=== PATIENT | male | born 1950 | race Caucasian/White ===

== ENCOUNTER 2019-04-30 06:24 | Day surgery (SDC) | payer MEDICARE ==
[2019-04-28 12:25] VITALS: BP 142/73
[2019-04-28 12:46] LABS: BASOPHILS % (AUTO) 1.2 % (0.0-5.0); EOSINOPHILS % (AUTO) 2.4 % (0.0-8.0); HEMATOCRIT 45.5 % (42-54); LYMPHOCYTES % (AUTO) 32.2 % (21.0-51.0); MEAN CORPUSCULAR HEMOGLOBIN 29.7 pg (27.0-33.0); MEAN CORPUSCULAR HGB CONC 33.7 g/dL (32.0-36.0); MEAN CORPUSCULAR VOLUME 88.1 fL (79-99); MONOCYTES % (AUTO) 6.1 % (3.0-13.0); NEUTROPHILS % (AUTO) 58.1 % (40.0-77.0); NUCLEATED RED BLOOD CELLS 0.1 % (0.0-0.19); PLATELET COUNT (AUTO) 252 K/uL (130-400); RED BLOOD CELL COUNT(AUTO) 5.16 MIL/uL (4.50-6.20); RED CELL DISTRIBUTION WIDTH 13.7 % (11.0-15.5); WHITE BLOOD COUNT (AUTO) 7.6 K/uL (4.8-10.8)
[2019-04-28 13:05] LABS: CREATININE 0.9 mg/dL (0.5-1.5); POTASSIUM 4.1 mmol/L (3.5-5.1)
[2019-04-28 13:25] LABS: APPEARANCE,URINE Clear (CLEAR); BILIRUBIN,URINE Negative (NEGATIVE); COLOR,URINE Dark Yellow (YELLOW); GLUCOSE, URINE (UA) 500 mg/dL (NEGATIVE); KETONES,URINE Trace mg/dL (NEGATIVE); LEUKOCYTE ESTERASE ,URINE Negative (NEGATIVE); NITRATE,URINE Negative (NEGATIVE); OCCULT BLOOD,URINE Negative (NEGATIVE); PROTEIN,URINE Negative (NEGATIVE)
[2019-04-28 13:27] LABS: BACTERIA,URINE Rare /HPF (None Seen); MUCUS,URINE Few LPF (None Seen); RBC,URINE 0-1 /HPF (0-1); SQUAMOUS EPITHELIAL CELL,UR Rare /HPF (0-2); WBC,URINE 0-1 /HPF (0-1)
[2019-04-28 13:39] LABS: INR 0.96 (0.85-1.15); PARTIAL THROMBOPLASTIN TIME 29.4 SEC (26.3-35.5); PROTHROMBIN TIME 10.1 SEC (9.6-11.6)
[2019-04-30] VITALS (13 sets, daily range): BP systolic 95–141; BP diastolic 60–82
[~2019-04-30] VITALS: Ht 185.4 cm; Wt 116.4 kg
[~2019-04-30 06:24] MED LIST: AMLO5TAB9 PO; GABA-531 PO; MELA3TAB55 PO; METF-805 PO; NAPR-1141 PO; OMEP20TA25 PO; SERT50TA12 PO; TAMS-1 PO
[2019-04-30] MEDS ORDERED: SODIUM CHLORIDE 0.9% 1000ML 1,000 ML IV ONE (07:04)
[2019-04-30] MEDS ORDERED: IOHEXOL-350 50ML VIAL IV ONE (09:48)
[2019-04-30] MEDS ORDERED: HEPARIN SODIUM 1000UNIT/ML 10ML VIAL ONE (09:48)
[2019-04-30] MEDS ORDERED: SODIUM BICARB 50MEQ 50ML VIAL ONE (09:48)
[2019-04-30] MEDS ORDERED: NITROGLYCERIN 5 MG/ML 10 ML VIAL IV ONE (09:48)
[2019-04-30] MEDS ORDERED: MEPERIDINE-PF 25 MG/ML SYG ONE ×2 (09:48→10:30)
[2019-04-30] MEDS ORDERED: IOHEXOL 350 MG/ML 100ML INFUS..BTL IV ONE (09:48)
[2019-04-30] MEDS ORDERED: LIDOCAINE HCL 2% 20ML ONE (09:49)
[2019-04-30] MEDS ORDERED: MIDAZOLAM HCL 1 MG/ML 2ML VIAL ONE ×2 (09:49→10:30)
[2019-04-30] MEDS ORDERED: ATROPINE SULFATE 0.1 MG/ML 10 ML SYG IVP ONE (10:30)
[2019-04-30] MEDS ORDERED: SODIUM CHLORIDE 0.9% 1000ML 1,000 ML IV SCH (10:56)
[2019-04-30] MEDS ORDERED: GLUCAGON 1MG KIT 1 MG ML IM PRN (11:00)
[2019-04-30] MEDS ORDERED: DEXTROSE 50%-WATER 50 ML DISP.SYRIN IV PRN (11:00)
[2019-04-30] MEDS ORDERED: INSULIN HUMULIN R 100 UNIT/ML 3ML SQ SCH (11:30)
--- NOTE | 2019-04-30 12:15 | NUR ---
patient was recieved by joshua blue rn , when assess pt at 1215, pt stable no distress, no concerns.
== END 2019-04-30 15:00 | disposition home or self-care (01) ==
LOC: DAH 06:24
PROVIDERS: ATTEND Internal Medicine Cardiovascular Disease
DX: I20.8 Other forms of angina pectoris (principal); R00.1 Bradycardia, unspecified; I10 Essential (primary) hypertension; I48.0 Paroxysmal atrial fibrillation; E11.9 Type 2 diabetes mellitus without complications; Z98.890 Other specified postprocedural states; Z88.8 Allergy status to other drugs, medicaments and biological substances; Z79.84 Long term (current) use of oral hypoglycemic drugs; Z79.899 Other long term (current) drug therapy; Z82.49 Family history of ischemic heart disease and other diseases of the circulatory system
CPT/HCPCS: 36415; 71045; 80048; 81001; 82948 ×2; 85025; 85610; 85730; 93005; 93458; A4215; A4216; A4221; A4222; A4223 ×3; A4606; A4663; C1760; C1894; J0461; J1644; J2175 ×2; J2250 ×2; J3490 ×3; J7030; Q9965; Q9967 ×2; 99156; 99157

== ENCOUNTER 2019-05-28 12:00 | Observation (INO) | payer MEDICARE ==
[2019-05-26 13:44] LABS: BASOPHILS % (AUTO) 1.2 % (0.0-5.0); EOSINOPHILS % (AUTO) 3.7 % (0.0-8.0); HEMATOCRIT 44.3 % (42-54); LYMPHOCYTES % (AUTO) 27.9 % (21.0-51.0); MEAN CORPUSCULAR HEMOGLOBIN 28.7 pg (27.0-33.0); MEAN CORPUSCULAR HGB CONC 32.7 g/dL (32.0-36.0); MEAN CORPUSCULAR VOLUME 87.5 fL (79-99); MONOCYTES % (AUTO) 10.3 % (3.0-13.0); NEUTROPHILS % (AUTO) 56.5 % (40.0-77.0); PLATELET COUNT (AUTO) 215 K/uL (130-400); RED BLOOD CELL COUNT(AUTO) 5.06 MIL/uL (4.50-6.20); WHITE BLOOD COUNT (AUTO) 8.9 K/uL (4.8-10.8)
[2019-05-26 13:49] VITALS: BP 134/85
[2019-05-26 14:03] LABS: INR 0.93 (0.85-1.15); PARTIAL THROMBOPLASTIN TIME 27.4 SEC (26.3-35.5); PROTHROMBIN TIME 9.8 SEC (9.6-11.6)
[2019-05-26 14:11] LABS: CREATININE 0.9 mg/dL (0.5-1.5); POTASSIUM 3.9 mmol/L (3.5-5.1)
[~2019-05-28] VITALS: Ht 185.4 cm; Wt 114.9 kg
[2019-05-28] VITALS (11 sets, daily range): BP systolic 107–157; BP diastolic 58–99
[~2019-05-28 12:00] MED LIST changes: +ASPI-988 PO; +HALO15CR3 TP; +SODIUM CHLORIDE 0.9% 1000ML 1,000 ML IV ONE; +SODIUM CHLORIDE 0.9% 500ML 500 ML IV SCH; +TRAM100T34 PO; +VITAMIN B12 IM; +[UNRECOGNIZED DRUG - OTHER] PO; +[UNRECOGNIZED DRUG - OTHER] PO
[2019-05-28] MEDS ORDERED: CEFAZOLIN SODIUM 1 GM VIAL ONE (12:41)
[2019-05-28] MEDS ORDERED: BUPIVACAINE/PF 0.25% 30ML VIAL IJ ONE (12:41)
[2019-05-28] MEDS ORDERED: LIDOCAINE HCL 1% MDV 50ML VIAL ONE (12:41)
--- NOTE | 2019-05-28 12:45 | NUR ---
TO TOOLMAKER GRADE THREE PT TAKEN TO TOOLMAKER GRADE THREE VIA BED BY VANESSA JIMENEZ. PT STABLE. NO COMPLAINTS MADE.
[2019-05-28] MEDS ORDERED: MEPERIDINE-PF 25 MG/ML SYG ONE ×4 (13:14→13:53)
[2019-05-28] MEDS ORDERED: MIDAZOLAM HCL 1 MG/ML 2ML VIAL ONE ×4 (13:15→13:53)
[2019-05-28] MEDS ORDERED: IODIXANOL 320 MG/ML 100 ML VIAL ONE (13:41)
[2019-05-28] MEDS ORDERED: NAPROXEN SODIUM PO PRN (14:45)
--- NOTE | 2019-05-28 15:00 | NUR ---
ARRIVAL PT RECEIVED FROM BUNCHER OPERATOR VIA BED, S/P PPM-BIOTRONIC DR POSADAS. LT UPPER CHEST DSG DRY & INTACT. NO BLEEDING, NO HEMATOMA NOTED. C/O INCISIONAL PAIN @ THIS TIME. PO PAIN MEDICATION TO BE GIVEN. SLING TO LT ARM. ARM PRECAUTIONS REVIEWED & REINFORCED. BEDREST X 3 HRS. A/O X 3. O2 NC @ 2L. NO SOB. NO DISTRESS NOTED. DENIES N/V AND/OR DIARRHEA. DIET TO BE RESUMED. ORIENTED TO RM. SIGNIFICANT OTHER @ BEDSIDE. INSTRUCTED TO CALL FOR ASSISTANCE. CALL JACKELINE W/IN REACH.
[2019-05-28] MEDS ORDERED: ACETAMINOPHEN-CODEINE 300/30MG TAB ONE (15:08)
[2019-05-28] MEDS: ACETAMINOPHEN-CODEINE 300/30MG TAB PO PRN ×2 (15:19→22:06)
[2019-05-28] MEDS ORDERED: ACETAMINOPHEN 325 MG TAB PO PRN (18:30)
[2019-05-28] MEDS ORDERED: ONDANSETRON HCL 4 MG/2 ML VIAL IVP PRN (18:30)
[2019-05-28] MEDS ORDERED: GLUCAGON 1MG KIT 1 MG ML IM PRN (18:30)
[2019-05-28] MEDS ORDERED: DEXTROSE 50%-WATER 50 ML DISP.SYRIN IV PRN (18:30)
[2019-05-28] MEDS: INSULIN HUMULIN R 100 UNIT/ML 3ML SQ SCH (20:37)
[2019-05-28] MEDS: AMLODIPINE BESYLATE 5 MG TAB PO SCH (20:40)
[2019-05-28] MEDS: FAMOTIDINE 20MG TAB 20 MG TAB PO SCH (20:40)
[2019-05-29 03:31] VITALS: BP 113/61
[2019-05-29 03:41] LABS: BASOPHILS % (AUTO) 0.8 % (0.0-5.0); EOSINOPHILS % (AUTO) 2.7 % (0.0-8.0); HEMATOCRIT 42.3 % (42-54); MEAN CORPUSCULAR HEMOGLOBIN 29.3 pg (27.0-33.0); MEAN CORPUSCULAR HGB CONC 33.1 g/dL (32.0-36.0); MEAN CORPUSCULAR VOLUME 88.5 fL (79-99); MONOCYTES % (AUTO) 7.6 % (3.0-13.0); NEUTROPHILS % (AUTO) 60.4 % (40.0-77.0); PLATELET COUNT (AUTO) 204 K/uL (130-400); RED BLOOD CELL COUNT(AUTO) 4.78 MIL/uL (4.50-6.20); RED CELL DISTRIBUTION WIDTH 14.1 % (11.0-15.5)
[2019-05-29 04:04] LABS: CREATININE 1.1 mg/dL (0.5-1.5); POTASSIUM 3.9 mmol/L (3.5-5.1)
[2019-05-29] MEDS: INSULIN HUMULIN R 100 UNIT/ML 3ML SQ SCH (06:14)
[2019-05-29 07:00] VITALS: BP 145/72
--- NOTE | 2019-05-29 07:45 | NUR ---
AM ASSESSMENT PT SITTING IN BED, RESTING. A/O X 3. NO SOB. NO DISTRESS NOTED. DENIES CHEST PAIN OR DISCOMFORT. DENIES INCISIONAL PAIN. TELE: A PACED. LT UPPER CHEST DSG CHANGED @ THIS TIME. STERI STRIPS IN PLACED. NO BLEEDING, NO HEMATOMA NOTED. TELFA & OPSITE APPLIED. ARM PRECAUTIONS REINFORCED. DENIES N/V AND/OR DIARRHEA. UP W/ASSISTANCE. INSTRUCTED TO CALL FOR ASSISTANCE. CALL JACKELINE W/IN REACH.
[2019-05-29] MEDS: FAMOTIDINE 20MG TAB 20 MG TAB PO SCH (07:51)
[2019-05-29] MEDS: AMLODIPINE BESYLATE 5 MG TAB PO SCH (07:51)
[2019-05-29] MEDS ORDERED: METFORMIN HCL 500 MG TAB.SR.24H PO SCH (08:00)
[2019-05-29] MEDS ORDERED: PANTOPRAZOLE SODIUM 40 MG TABLET.DR PO SCH (09:00)
[2019-05-29] MEDS ORDERED: TAMSULOSIN HCL 0.4 MG CAP.ER.24H PO SCH (09:00)
[2019-05-29] MEDS ORDERED: ACETAMINOPHEN PO PRN (09:00)
[2019-05-29] MEDS ORDERED: GABAPENTIN 300 MG CAPSULE PO SCH (09:00)
[2019-05-29] MEDS ORDERED: SERTRALINE HCL 50 MG TABLET PO SCH (09:00)
[2019-05-29] MEDS ORDERED: ASPIRIN PO PRN (09:00)
[2019-05-29] MEDS ORDERED: HALOBETASOL PROPIONATE TP PRN (09:00)
[2019-05-29] MEDS ORDERED: CAFFEINE PO PRN (09:00)
--- NOTE | 2019-05-29 10:45 | NUR ---
DISCHARGE VERBAL & WRITTEN DISCHARGE INSTRUCTION REVIEWED & GIVEN TO PT & SIGNIFICANT OTHER. QUESTIONS ENCOURAGED & CLARIFIED. PROPER CARE & ACTIVITY AFTER PPM PLACEMENT REVIEWED. PT INFORMED PRESCRIPTION FOR PO PAIN MEDICATION TO BE TRANSMITTED TO PHARMACY IN FILE. TELE SUSAN REMOVED. IV DISCONTINUED. PT TO GATHER PERSONAL BELONGINGS. WILL NOTIFY STAFF WHEN READY TO BE TAKEN TO PRIVATE VEHICLE.
[2019-05-29] MEDS ORDERED: ACET1TAB12 PO (11:14)
--- NOTE | 2019-05-29 11:35 | NUR ---
DISCHARGE PT TAKEN TO PRIVATE VEHICLE VIA WC BY MYSELF, La Nena VILLANUEVA RN. NO DISTRESS NOTED.
== END 2019-05-29 11:30 | disposition home or self-care (01) ==
LOC: DAH 12:00 → 2DH 12:01 → DAH 12:01
PROVIDERS: ADMIT Internal Medicine; ATTEND Internal Medicine
DX: I49.5 Sick sinus syndrome (principal); I45.89 Other specified conduction disorders; I47.1 Supraventricular tachycardia; I48.0 Paroxysmal atrial fibrillation; I10 Essential (primary) hypertension; E11.9 Type 2 diabetes mellitus without complications; E78.5 Hyperlipidemia, unspecified; Z85.820 Personal history of malignant melanoma of skin; Z95.0 Presence of cardiac pacemaker; Z90.89 Acquired absence of other organs; Z96.651 Presence of right artificial knee joint; Z79.82 Long term (current) use of aspirin; Z79.899 Other long term (current) drug therapy; Z88.8 Allergy status to other drugs, medicaments and biological substances
CPT/HCPCS: 33208; 36415 ×2; 71045; 80048 ×2; 82948 ×4; 85025 ×2; 85610; 85730; 93005; A4215; A4216; A4221; A4222; A4223 ×3; A4606; A4663; C1785; C1894; C1898 ×2; G0378 ×20; J0690; J2175 ×4; J2250 ×4; J3490 ×2; J7030; Q9967; 99156; 99157

== ENCOUNTER 2019-08-04 08:14 | Emergency (ER) | payer MEDICARE ==
[~2019-08-04 08:14] MED LIST changes: +ACET1TAB12 PO; -SODIUM CHLORIDE 0.9% 1000ML 1,000 ML IV ONE; -SODIUM CHLORIDE 0.9% 500ML 500 ML IV SCH
[2019-08-04 08:51] LABS: APPEARANCE,URINE Clear (CLEAR); BILIRUBIN,URINE Negative (NEGATIVE); COLOR,URINE Yellow (YELLOW); GLUCOSE, URINE (UA) Negative (NEGATIVE); KETONES,URINE Trace mg/dL (NEGATIVE); LEUKOCYTE ESTERASE ,URINE Negative (NEGATIVE); NITRATE,URINE Negative (NEGATIVE); OCCULT BLOOD,URINE Negative (NEGATIVE); PROTEIN,URINE Negative (NEGATIVE)
[2019-08-04 09:10] LABS: BACTERIA,URINE Rare /HPF (None Seen); MUCUS,URINE Few LPF (None Seen); SQUAMOUS EPITHELIAL CELL,UR Rare /HPF (0-2); WBC,URINE 0-1 /HPF (0-1)
[2019-08-04 09:32] LABS: BASOPHILS % (AUTO) 0.5 % (0.0-5.0); EOSINOPHILS % (AUTO) 1.1 % (0.0-8.0); HEMATOCRIT 47.4 % (42-54); MEAN CORPUSCULAR HGB CONC 33.1 g/dL (32.0-36.0); MEAN CORPUSCULAR VOLUME 87.5 fL (79-99); MONOCYTES % (AUTO) 4.2 % (3.0-13.0); NEUTROPHILS % (AUTO) 77.7 % (40.0-77.0); PLATELET COUNT (AUTO) 239 K/uL (130-400); RED BLOOD CELL COUNT(AUTO) 5.42 MIL/uL (4.50-6.20); RED CELL DISTRIBUTION WIDTH 13.8 % (11.0-15.5); WHITE BLOOD COUNT (AUTO) 9.4 K/uL (4.8-10.8)
[2019-08-04] MEDS ORDERED: ONDANSETRON HCL 4 MG/2 ML VIAL ONE (09:35)
[2019-08-04] MEDS ORDERED: SODIUM CHLORIDE 0.9% 1000ML 1,000 ML IV ONE (09:36)
[2019-08-04] MEDS ORDERED: KETOROLAC TROMETHAMINE 30MG/ML ONE (09:36)
[2019-08-04 09:47] LABS: CREATININE 1.1 mg/dL (0.5-1.5); POTASSIUM 4.4 mmol/L (3.5-5.1)
[2019-08-04 09:52] LABS: BILIRUBIN,TOTAL 0.5 mg/dL (0.2-1.0)
== END 2019-08-04 11:38 | disposition home or self-care (01) ==
LOC: EDH 08:14
DX: G89.29 Other chronic pain (principal); R10.9 Unspecified abdominal pain; M54.9 Dorsalgia, unspecified; Z88.8 Allergy status to other drugs, medicaments and biological substances
CPT/HCPCS: 36415; 74176; 80053; 81001; 85025; 96374; 96375; 99284; J1885; J2405; J7030

== ENCOUNTER 2020-01-09 05:41 | Observation (INO) | payer MEDICARE ==
[~2020-01-09] VITALS: Ht 185.4 cm; Wt 108.9 kg
[2020-01-09] VITALS (20 sets, daily range): BP systolic 110–154; BP diastolic 56–89
[2020-01-09 06:33] LABS: BASOPHILS % (AUTO) 0.1 % (0.0-5.0); HEMATOCRIT 44.3 % (42-54); LYMPHOCYTES % (AUTO) 10.4 % (21.0-51.0); MEAN CORPUSCULAR HEMOGLOBIN 29.6 pg (27.0-33.0); MEAN CORPUSCULAR HGB CONC 33.2 g/dL (32.0-36.0); MEAN CORPUSCULAR VOLUME 89.3 fL (79-99); MONOCYTES % (AUTO) 3.6 % (3.0-13.0); NEUTROPHILS % (AUTO) 85.3 % (40.0-77.0); PLATELET COUNT (AUTO) 243 K/uL (130-400); RED BLOOD CELL COUNT(AUTO) 4.96 MIL/uL (4.50-6.20); RED CELL DISTRIBUTION WIDTH 13.5 % (11.0-15.5); WHITE BLOOD COUNT (AUTO) 15.6 K/uL (4.8-10.8)
[2020-01-09 06:43] LABS: POTASSIUM 4.4 mmol/L (3.5-5.1)
[2020-01-09 06:45] LABS: INR 0.94 (0.85-1.15); PROTHROMBIN TIME 10.2 SEC (9.6-11.6)
[2020-01-09 06:48] LABS: BILIRUBIN,TOTAL 0.3 mg/dL (0.2-1.0); TOTAL PROTEIN, SERUM 7.5 g/dL (6.0-8.3)
[2020-01-09] MEDS ORDERED: CEFAZOLIN SODIUM 1 GM VIAL ONE ×4 (09:34→19:57)
[2020-01-09] MEDS ORDERED: BUPIVACAINE/PF 0.25% 30ML VIAL IJ ONE (09:35)
[2020-01-09] MEDS ORDERED: VANCOMYCIN HCL 1 GM VIAL ONE (09:35)
[2020-01-09] MEDS ORDERED: TOBRAMYCIN SULFATE 40MG/1ML VIAL ONE (09:37)
[2020-01-09] MEDS ORDERED: THROMBIN-JMI 20000 UNIT KIT TP ONE (09:38)
[2020-01-09] MEDS ORDERED: DURAMORPH PF1 MG/ML 10ML AMP IV ONE (09:38)
[2020-01-09] MEDS ORDERED: FENTANYL CITRATE PF 50 MCG/1 ML 2ML VIAL ONE ×2 (09:38→09:47)
[2020-01-09] MEDS ORDERED: LIDOCAINE PF 2% 5ML ABBOJECT ONE (09:46)
[2020-01-09] MEDS ORDERED: SUCCINYLCHOLINE CHLORIDE 20 MG/ML 10 ML VIAL ONE (09:46)
[2020-01-09] MEDS ORDERED: ROCURONIUM 10MG/1ML SYR 10 MG/ML ML ONE ×2 (09:46→12:32)
[2020-01-09] MEDS ORDERED: PROPOFOL 10 MG/ML 20ML VIAL IV ONE (09:46)
[2020-01-09] MEDS ORDERED: EPHEDRINE SULFATE 50 MG/ML AMPULE ONE (11:54)
[2020-01-09] MEDS ORDERED: GENTAMICIN 80 MG/NS 100 ML PB 100 ML IV ONE (12:36)
[2020-01-09] MEDS ORDERED: KETOROLAC TROMETHAMINE 30MG/ML ONE (14:13)
[2020-01-09] MEDS ORDERED: GLYCOPYRROLATE 1 MG/5 ML SYRINGE ONE (14:13)
[2020-01-09] MEDS ORDERED: NEOSTIGMINE 5MG/5ML SYR IV ONE (14:13)
[2020-01-09] MEDS ORDERED: BACITRACIN 28.4 GM OINT TP ONE (14:31)
[2020-01-09] MEDS ORDERED: DEXAMETHASONE SOD PHOSPHATE 10MG/ML 1ML VIAL ONE (14:32)
[2020-01-09] MEDS ORDERED: ACETAMINOPHEN-CODEINE 300/30MG TAB PO PRN ×2 (18:45)
[2020-01-09] MEDS ORDERED: SODIUM CHLORIDE 0.9% 1000ML 1,000 ML IV SCH (18:45)
[2020-01-09] MEDS ORDERED: MEPERIDINE-PF 75 MG/ML SYG IM PRN (18:45)
--- NOTE | 2020-01-09 19:30 | NUR ---
TANI DRAIN REMOVED 50 CC FROM DRAIN. SEROSANGUINEOUS DRAINAGE NOTED. DRESSING TO INCISION SITE INTACT, CLEAN AND DRY.
[2020-01-09] MEDS: CEFAZOLIN SODIUM 1 GM VIAL IVP SCH (20:49)
[2020-01-09] MEDS: AMLODIPINE BESYLATE 5 MG TAB PO SCH (20:49)
[2020-01-10 03:46] VITALS: BP 114/55
--- NOTE | 2020-01-10 03:56 | NUR ---
NURSING ROUNDS PT ASLEEP IN BED. OBSERVED RISE AND FALL OF CHEST. EVEN, UNLABORED RESP. NO S/S OF DISTRESS NOTED. BED LOCKED AND IN LOWEST POSITION, CALL LIGHT WITHIN REACH ON BED. WILL CONT TO MONITOR PT.
[2020-01-10] MEDS: CEFAZOLIN SODIUM 1 GM VIAL IVP SCH ×2 (05:18→13:06)
--- NOTE | 2020-01-10 07:00 | NUR ---
UNABLE TO VOID PT VOICED CONCERN THAT HE WAS ONLY ABLE TO VOID "VERY LITTLE". WILL BLADDER SCAN PT. ENDORSED IN REPORT TO PRIMARY DAY SHIFT NURSE.
--- NOTE | 2020-01-10 07:00 | NUR ---
TANI OUTPUT DRAIN OUT PUT 60 CC, SEROSANGUINEOUS DRAINAGE. TOTAL OUTPUT FOR TOBACCO SIEVE OPERATOR 110 CC.
[2020-01-10 08:00] VITALS: BP 160/86
--- NOTE | 2020-01-10 08:50 | NUR ---
pt c/o full bladder, bladder scan resulted 897cc after pt was able to void only a small amount; i have paged dr gay to inform him and get order to cath patient.
[2020-01-10] MEDS ORDERED: NAPROXEN SODIUM PO PRN (09:00)
[2020-01-10] MEDS ORDERED: ASPIRIN PO PRN (09:00)
[2020-01-10] MEDS ORDERED: NON-FORMULARY MEDICATION 1 EACH (Metformin HCl (Metformin HCl ER) 500 MG) PO SCH (09:00)
[2020-01-10] MEDS ORDERED: ACETAMINOPHEN PO PRN (09:00)
[2020-01-10] MEDS ORDERED: CAFFEINE PO PRN (09:00)
[2020-01-10] MEDS ORDERED: NON-FORMULARY MEDICATION 1 EACH (Omeprazole 20 MG) PO SCH (09:00)
[2020-01-10] MEDS: GABAPENTIN 300 MG CAPSULE PO SCH (09:18)
[2020-01-10] MEDS: METFORMIN HCL 500 MG TAB.SR.24H PO SCH (09:18)
[2020-01-10] MEDS: PANTOPRAZOLE SODIUM 40 MG TABLET.DR PO SCH (09:18)
[2020-01-10] MEDS: SERTRALINE HCL 50 MG TABLET PO SCH (09:19)
[2020-01-10] MEDS: AMLODIPINE BESYLATE 5 MG TAB PO SCH ×2 (09:19→21:00)
[2020-01-10] MEDS: TAMSULOSIN HCL 0.4 MG CAP.ER.24H PO SCH (09:19)
--- NOTE | 2020-01-10 09:45 | NUR ---
ORDER RECEIVED FROM DR PHILLIPS TO IN AND OUT CATH THE PATH DUE TO BLADDER RETENTION; AFTER EXPLAINING TO THE PATIENT THE PROCEDURE TO BE DONE AND ANSWERING ALL HIS QUESTION I PERFORMED THE IN AND OUT CATH; FIRST I WASHED MY HANDS THEN USING ASEPTIC AND CLEANSING PT MEATUS WITH BETADINE A 16FR AMES CATHETOR WAS INSERTED AND PT HAD IMMEDIATE OUTPUT OF 1200CC OF CLEAR YELLOW URINE; PT RODOLFO. THE PROC. WELL; HE STATED HE HAS HARDLY NO SENSASTION TO HIS BLADDER DUE TO HIS BACK PROBLEM AND DOES NOT REALLY FEEL IT FULL; PATIENT IS DUE TO VOID AT THIS TIME AND HE HAS A URINAL.
--- NOTE | 2020-01-10 11:00 | NUR ---
PT AMBULATED IN ROOM APPROX. 100FT, HE STATED THAT HIS FEET FEEL VERY HEAVY BUT NOT BAD YESTERDAY; HE STATES HE DOESN'T FEEL LIKE HE NEEDS TO URINATE YET BUT ITS HARD TO TELL BECAUSE HE DOESN'T FEEL HIS BLADDER VERY WELL; I DISCUSSED WITH HIM POSSIBLY NEEDING A AMES PLACED AND GOING HOME WITH IT AND SEEING A UROLOGIST OUTPATIENT IF HE'S NOT ABLE TO VOID AND HE STATED UNDERSTANDING; I EMPTIED 25CC FROM THE TANI DRAIN EXITING HIS BACK.
[2020-01-10 12:00] VITALS: BP 129/71
--- NOTE | 2020-01-10 15:27 | NUR ---
INITIAL SW spoke with patient's friend, Bessy Nicholson. Patient lives alone but friend lives in an apartment next to patient's home. He has no home services at this time. DME: glucometer (no insulin), BPM. Patient was able to complete ADL's independently and drove prior to having surgery. PCP is Dr. Russell Escobar. Pharmacy is [facility] located in [place] on [facility]. DCP is home. Addendum: 01/10/20 at 1529 by RULA SANCHEZ SS Amended: Links added.
[2020-01-10 16:00] VITALS: BP 126/68
--- NOTE | 2020-01-10 16:53 | NUR ---
PT HAD BEEN DUE TO VOID AND HAD NOT FELT SENSATION TO VOID TILL NOW; HE VOIDED 300CC OF URINE AND SAID HE REALLY HAD TO CONCENTRATE TO BE ABLE TO GET THE URINE TO RELEASE. I CHECKED POST VOID RESIDUAL WITH BLADDER SCAN AND PT HAD 125CC RESIDUAL. PT IS ALSO C/O TO ME INABILITY TO HAVE A BOWEL MOVEMENT UNLESS HE TAKES LAXATIVE, THAT HE CAN NOT GET THE STOOL TO COME OUT UNLESS IT IS LIQUID DUE TO LACK OF SENSATION IN RECTAL AREA. HE STATES HE FEELS THAT THE SENSATION IS SOMEWHAT IMPROVED NOW THAT HE HAD THE SURGERY. HE STATES HE WOULD PREFER TO STAY OVERNIGHT ONE MORE NIGHT TO MAKE SURE HE IS GOING TO BE ABLE TO VOID ; I WILL UPDATE DR PHILLIPS; PT HAD 20CC OF TANI DRAIN OUTPUT.
[2020-01-10] MEDS ORDERED: LACTULOSE 20 GM/30 ML UDCUP PO PRN (17:00)
[2020-01-10] MEDS ORDERED: LACTULOSE 20 GM/30 ML UDCUP ONE (17:10)
--- NOTE | 2020-01-10 18:14 | NUR ---
I SPOKE TO DR PHILLIPS ON THE PHONE AND INFORMED HIM OF PT'S DAILY PROGRESS AND PT'S WISH TO STAY OVER NIGHT TO MAKE SAGE THAT HE'S ABLE TO VOID AND HE AGREED THAT PT CAN STAY OVER NIGHT AND PLAN D/C TOMORROW. ALSO HE STATED IT WAS OK FOR PT TO RECEIVE LACTULOSE TO ASSIST HIM WITH BOWEL MOVEMENT
[2020-01-10 19:20] VITALS: BP 121/72
--- NOTE | 2020-01-10 23:56 | NUR ---
NURSING ROUNDS PT C/O FEELING GASSY AND THE URGE TO HAVE A BM. REPORTS THAT HE DOES NOT HAVE CONTROL OF HIS RECTUM MUSCLES AND IS FREQUENTLY GETTING UP TO GO TO THE RESTROOM. OFFERED TO PLACE A BRIEF AND THE PT ACCEPTED. ADULT BRIEF PLACED. INSTRUCTED THE PT TO CALL FOR ASSISTANCE WHEN NEEDED- PT VERBALIZED AGREEMENT. CALL LIGHT WITHIN REACH ON BED.
[2020-01-10 23:58] VITALS: BP 142/72
[2020-01-11 03:40] VITALS: BP 131/62
[2020-01-11] MEDS: AMLODIPINE BESYLATE 5 MG TAB PO SCH (07:55)
[2020-01-11] MEDS: SERTRALINE HCL 50 MG TABLET PO SCH (07:55)
[2020-01-11] MEDS: PANTOPRAZOLE SODIUM 40 MG TABLET.DR PO SCH (07:55)
[2020-01-11] MEDS: TAMSULOSIN HCL 0.4 MG CAP.ER.24H PO SCH (07:55)
[2020-01-11] MEDS: METFORMIN HCL 500 MG TAB.SR.24H PO SCH (07:55)
[2020-01-11] MEDS: GABAPENTIN 300 MG CAPSULE PO SCH (07:55)
[2020-01-11 08:00] VITALS: BP 122/69
[2020-01-11 12:00] VITALS: BP 119/66
--- NOTE | 2020-01-11 15:00 | NUR ---
DRSG CHANGED TO PTS BACK INCISION AND TANI DRAIN REMOVED; PT HAS A WELL APPROX. INC. LINE WITH BRITTNY IN PLACE, SLIGHT REDNESS AROUND SURGICAL MARGINS, NO EDEMA OR DRAINAGE NOTED; TANI INSERTION SITE WNL AFTER DRAIN REMOVED--COMPRESSION DRESSING PLACED OVER SITE FOR POSSIBLE BLEEDING; INC. LINE CLEANED WITH BETADINE THEN BACITRACIN OINTMENT APPLIED--THEN 4X4 ANNA AND MEDIPORE TAPE; CLEAN TEQUNIQUE USED; PT RODOLFO. PROC. WELL. WITH NO C/O PAIN.
[2020-01-11 16:00] VITALS: BP 139/57
--- NOTE | 2020-01-11 16:30 | NUR ---
D/C INSTRUCTIONS ON AFTERCARE FOR A LAMINECTOMY COMPLETE; PT STATED UNDERSTANDING OF ALL INSTRUCTIONS INCLUDING WOUND CARE, SIGNS AND SYMPTOMS TO REPORT TO MD SUCH INFECTION OR CHANGE NEUROLOGICAL STATUS OR ANY OTHER QUESTIONS OR CONCERNS, PAIN MEDICATION PERSCRIPTION, LIMITED ACTIVITY--NO TWISTING, PULLING OR LIFTING HEAVY OBJECTS TILL INSTRUCTED DIFFERETLY; PT DID TALK TO DR PHILLIPS ON THE PHONE EARLIER IN DAY AND HAD A LIST OF QUESTIONS THAT HE ASKED HIM AND HAD ANSWERED; PT STATED HE ALREADY HAS A F/U APPOINTMENT WITH DR PHILLIPS SO INSTRUCTED HIM TO KEEP THAT APPOINTMENT AND TO ALSO CALL OFFICE TO HAVE HOME HEALTH NURSE SET UP THAT DR PHILLIPS STATED HE WOULD HAVE HIS OFFICE SET UP. IV ACCESS REMOVED, SCRIPT FOR PAIN MEDS--TRAMADOL GIVEN TO PATIENT AND INSTRUCTED ON HOW TO TAKE WELL TO CONTINUE ALL CURRENT HOME MEDICATIONS.
--- NOTE | 2020-01-11 16:45 | NUR ---
I HAVE GIVEN PT 2 DOSES OF LACTULOSE FOR HIS PROBLEMS WITH CONSTIPATION AND DECREASED SENSATION OF RECTUM; PT DID HAVE A LARGE BOWEL MOVEMENT NOW AND STATED HE FELT MUCH RELEIVED.
[2020-01-23] MEDS ORDERED: VITAMIN B12 IM SCH (09:00)
== END 2020-01-11 17:45 | disposition home or self-care (01) ==
LOC: EDH 05:41 → EDHIP 07:16 → 3AH 15:57
PROVIDERS: ADMIT Neurological Surgery; ATTEND Neurological Surgery
DX: Z03.818 Encounter for observation for suspected exposure to other biological agents ruled out (principal); M48.061 Spinal stenosis, lumbar region without neurogenic claudication; G83.4 Cauda equina syndrome; M47.816 Spondylosis without myelopathy or radiculopathy, lumbar region; Z87.442 Personal history of urinary calculi; Z88.8 Allergy status to other drugs, medicaments and biological substances
CPT/HCPCS: 36415; 63017; 71045; 72020; 80053; 82948 ×8; 85025; 85610; 85730; 87426; 93005; 96374; 96376; 99285; A4351; A4649; A6010; C1713; C1762; G0378 ×18; J0330; J0690 ×8; J1030 ×2; J1100; J1580; J1885; J2001; J2274 ×2; J2704; J2710; J3010 ×2; J3260 ×2; J3370 ×2; J3490 ×5; J7030

== ENCOUNTER → 2020-02-25 | Outpatient (CLI) | payer MEDICARE ==
[~2020-02-25] MED LIST changes: -ACET1TAB12 PO; -HALO15CR3 TP; -TRAM100T34 PO; -[UNRECOGNIZED DRUG - OTHER] PO; -[UNRECOGNIZED DRUG - OTHER] PO
== END | disposition home or self-care (01) ==
LOC: RAH 14:08
PROVIDERS: ATTEND Physical Medicine & Rehabilitation
DX: J32.0 Chronic maxillary sinusitis (principal); M54.12 Radiculopathy, cervical region; R51 Headache
CPT/HCPCS: 70450

== ENCOUNTER → 2024-01-16 | Outpatient (CLI) | payer OTHER ==
[~2024-01-16] MED LIST changes: +AMLO-257 PO; -AMLO5TAB9 PO; -ASPI-988 PO; +ASPI1TAB7 PO; +IOHEXOL 350 MG/ML 100ML INFUS..BTL IV ONE; -METF-805 PO; +METF-890 PO; +METOPROLOL TARTRATE 1 MG/ML 5ML VIAL IV ONE; +OMEP20TA20 PO; -OMEP20TA25 PO; +SERT-439 PO; -SERT50TA12 PO
== END | disposition home or self-care (01) ==
LOC: RAH 10:15
PROVIDERS: ATTEND Internal Medicine Cardiovascular Disease
DX: R06.00 Dyspnea, unspecified (principal); M47.815 Spondylosis without myelopathy or radiculopathy, thoracolumbar region
CPT/HCPCS: 75574; J3490; Q9967

== ENCOUNTER → 2024-01-19 | Outpatient (CLI) | payer OTHER ==
[~2024-01-19] MED LIST changes: -IOHEXOL 350 MG/ML 100ML INFUS..BTL IV ONE; -METOPROLOL TARTRATE 1 MG/ML 5ML VIAL IV ONE
== END | disposition home or self-care (01) ==
LOC: SHCH 14:23
PROVIDERS: ATTEND Internal Medicine Cardiovascular Disease
DX: I10 Essential (primary) hypertension (principal)
CPT/HCPCS: 93306

== ENCOUNTER → 2024-02-20 | Outpatient (CLI) | payer OTHER ==
[~2024-02-20] MED LIST changes: +ALBUTEROL 0.083% 2.5 MG/3 ML INH IH ONE
== END | disposition home or self-care (01) ==
LOC: RESP 13:43
PROVIDERS: ATTEND Internal Medicine Cardiovascular Disease
DX: R06.02 Shortness of breath (principal); R07.9 Chest pain, unspecified; R06.09 Other forms of dyspnea
CPT/HCPCS: 94060

== ENCOUNTER → 2024-08-04 | Outpatient (CLI) | payer OTHER ==
[~2024-08-04] MED LIST changes: -ALBUTEROL 0.083% 2.5 MG/3 ML INH IH ONE; +IOHEXOL 350 MG/ML 100ML INFUS..BTL IV ONE; +METF-1150 PO; -METF-890 PO; +metoPROLOL tartRATE 1 MG/ML 5ML VIAL IV ONE
--- NOTE | 2024-08-04 14:36 | HMCIMG ---
CT CARDIAC ANGIO W/CONT. CCTA HISTORY: Chest pain COMPARISON: None TECHNIQUE: Multiple sequential axial images of the chest were obtained along with the CT angiogram of the chest study. Patient was given 100 cc of Omnipaque through intravenous route. FINDINGS: There is no evidence of pulmonary nodule or parenchymal disease. No pleural effusion or pericardial effusion is seen. There is no evidence of pneumothorax. There are normal size mediastinal and hilar lymph nodes. The heart is borderline enlarged. Coronary arterial calcifications are seen. Degenerative changes of the thoracolumbar spine are present. IMPRESSION: 1. No evidence of pulmonary nodule or effusion is seen. Please see CT angiogram report of coronary arteries.
== END | disposition home or self-care (01) ==
LOC: RAH 08:01
PROVIDERS: ATTEND Internal Medicine Cardiovascular Disease
DX: I25.10 Atherosclerotic heart disease of native coronary artery without angina pectoris (principal); R07.9 Chest pain, unspecified; M47.815 Spondylosis without myelopathy or radiculopathy, thoracolumbar region
CPT/HCPCS: 75574; J3490 ×2; Q9967

== ENCOUNTER 2024-08-27 10:54 | Day surgery (SDC) | payer OTHER ==
[2024-08-26 12:04] LABS: BASOPHILS # (AUTO) 0.08 K/uL (0.00-0.20); BASOPHILS % (AUTO) 0.7 % (0.0-5.0); EOSINOPHILS # (AUTO) 0.17 K/uL (0.00-0.70); EOSINOPHILS % (AUTO) 1.6 % (0.0-8.0); HEMATOCRIT 45.1 % (42-54); IMMATURE GRANULOCYTE ABSOLUTE 0.06 K/uL (0-1); LYMPHOCYTES # (AUTO) 2.2 K/uL (1.0-4.8); LYMPHOCYTES % (AUTO) 20.7 % (21.0-51.0); MEAN CORPUSCULAR HEMOGLOBIN 29.2 pg (27.0-33.0); MEAN CORPUSCULAR HGB CONC 32.8 g/dL (32.0-36.0); MEAN CORPUSCULAR VOLUME 89.1 fL (79-99); MONOCYTES # (AUTO) 0.8 K/uL (0.1-1.0); MONOCYTES % (AUTO) 7.6 % (3.0-13.0); NEUTROPHILS # (AUTO) 7.4 K/uL (1.8-7.7); NEUTROPHILS % (AUTO) 68.8 % (40.0-77.0); PLATELET COUNT (AUTO) 241 K/uL (130-400); RED BLOOD CELL COUNT(AUTO) 5.06 MIL/uL (4.50-6.20); RED CELL DISTRIBUTION WIDTH 13.2 % (11.0-15.5); WHITE BLOOD COUNT (AUTO) 10.8 K/uL (4.8-10.8)
[2024-08-26 12:16] LABS: INR 1.03 (0.85-1.15); PROTHROMBIN TIME 10.9 SEC (9.6-11.6)
[2024-08-26 12:17] LABS: PARTIAL THROMBOPLASTIN TIME 32.8 SEC (26.3-35.5)
[2024-08-26 12:20] LABS: APPEARANCE,URINE CLEAR (CLEAR); BILIRUBIN,URINE NEGATIVE (NEGATIVE); COLOR,URINE YELLOW (YELLOW); GLUCOSE, URINE (UA) 200 mg/dL (NEGATIVE); KETONES,URINE NEGATIVE (NEGATIVE); LEUKOCYTE ESTERASE ,URINE NEGATIVE Leu/uL (NEGATIVE); NITRATE,URINE NEGATIVE (NEGATIVE); OCCULT BLOOD,URINE NEGATIVE (NEGATIVE); PROTEIN,URINE 20 mg/dL (NEGATIVE)
[2024-08-26 12:25] LABS: CREATININE 1.2 mg/dL (0.5-1.3)
[2024-08-26 12:33] VITALS: BP 120/67; PULSE 87; RESP 18; TEMP 97.5
[2024-08-26 12:38] LABS: ADD UA MICROSCOPIC YES
--- NOTE | 2024-08-26 12:40 | EKG ---
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
[2024-08-26 12:41] LABS: BACTERIA,URINE RARE /HPF (None Seen); MUCUS,URINE FEW LPF (None Seen); SQUAMOUS EPITHELIAL CELL,UR RARE /HPF (0-2)
[2024-08-26 12:45] LABS: B-TYPE NATRIURETIC PEPTIDE 19 pg/mL (0-100)
--- NOTE | 2024-08-26 14:37 | HMCIMG ---
Exam Type: CHEST 1VW Clinical Information: PREOP Comparison: None Findings: Left cardiac pacemaker is noted with leads in place. The lungs are clear of infiltrates. The heart is normal in size. The bony and soft tissue structures of the chest are unremarkable. Impression: Clear lungs.
--- NOTE | 2024-08-26 15:13 | NUR ---
REPORT REPORTED NA AND CHLORIDE TO MANDA GALVAN NP. OK TO PROCEED
[~2024-08-27] VITALS: Ht 185.4 cm; Wt 116.6 kg
[2024-08-27] VITALS (10 sets, daily range): BP systolic 115–134; BP diastolic 64–81; PULSE 60–100; RESP 11–16; TEMP 96.9–97.4
[~2024-08-27 10:54] MED LIST changes: -AMLO-257 PO; +AMLO2.5T4 PO; +APIX5TAB PO; +ASPI-1443 PO; -ASPI1TAB7 PO; +CETI10TA57 PO; +DIPH50CA37 PO; +EZET10TA48 PO; +FENT1PAT60 TD; +GABA-1405 PO; -GABA-531 PO; +HYDR-4068 PO; -IOHEXOL 350 MG/ML 100ML INFUS..BTL IV ONE; -MELA3TAB55 PO; -METF-1150 PO; +METO50TA18 PO; +MONT-39 PO; -NAPR-1141 PO; +OZEMPIC SQ; +SERT-438 PO; -SERT-439 PO; -TAMS-1 PO; -VITAMIN B12 IM; +VOLTAREN TP; -metoPROLOL tartRATE 1 MG/ML 5ML VIAL IV ONE
[2024-08-27] MEDS ORDERED: HEParin 10,000 UNIT/10ML (1,000 UNIT/ML) VIAL ONE (13:53)
[2024-08-27] MEDS ORDERED: LIDOCAINE HCL 400MG/20ML VIAL ONE (13:53)
[2024-08-27] MEDS ORDERED: IOHEXOL 350 MG/ML 100ML INFUS..BTL IV ONE (13:53)
[2024-08-27] MEDS ORDERED: niCARDIpine 25MG INJ IV ONE (13:55)
[2024-08-27] MEDS ORDERED: HEParin-NS 1,000 UNIT/500 ML 500 ML IV ONE (13:55)
[2024-08-27] MEDS ORDERED: NITROGLYCERIN 50MG VIAL ONE (14:09)
[2024-08-27] MEDS ORDERED: FENTanyl CITRate PF 50 MCG/1 ML 2ML VIAL ONE (14:11)
[2024-08-27] MEDS ORDERED: MIDAZOLAM HCL 1 MG/ML 2ML VIAL ONE ×2 (14:11→14:31)
[2024-08-27] MEDS ORDERED: 0.9%NACL 1000ML 1,000 ML IV SCH (15:00)
[2024-08-27] MEDS ORDERED: GLUCAGON 1MG KIT 1 MG ML IM PRN (15:00)
[2024-08-27] MEDS ORDERED: DEXTROSE 50%-WATER 50 ML DISP.SYRIN IV PRN (15:00)
--- NOTE | 2024-08-27 15:56 | PR ---
PROCEDURES: * Left heart catheterization. * Selective right and left coronary arteriogram. * Conscious sedation. INDICATIONS: * Recurrent angina. * Abnormal Cardiolite. * Abnormal coronary CT angiography. COMPLICATIONS: None. TOTAL CONTRAST: Approximately 60 mL. APPROACH: Right radial approach. DESCRIPTION OF PROCEDURE: The patient was taken to the cardiac catheterization lab after appropriate operative consents were signed. He was prepped and draped in the usual fashion. After conscious sedation was administered, the right radial artery region was infiltrated with 2% Xylocaine without epinephrine. At this point, a 6-Vietnamese slender sheath was advanced after cannulating the vessel in a retrograde fashion by the modified Seldinger technique. Radial cocktail was administered. A TIG 4 catheter was then advanced over an indwelling wire and was positioned in the left ventricular cavity. Left ventricular end-diastolic pressure measurement was obtained. Ventriculography was deferred. The patient has preserved LV systolic function by noninvasive studies. Pullback revealed no aortic stenosis. The catheter was engaged in the ostium of the left main. This was imaged in multiplane. This was a large vessel that was short in its course. It trifurcated into an LAD, intermediate and a circumflex. Circumflex coronary artery was a small vessel that gave rise to an obtuse marginal branch and ongoing circ and was free of disease. Intermediate was a large vessel that was branching and free of disease. The LAD was a moderately large vessel, gave rise to several diagonals and septal perforators. Mid LAD had a kinked lesion of approximately 40% stenosis. There were no other significant stenotic lesions. The catheter was withdrawn and engaged in the ostium of the right coronary artery. Imaging was obtained in multiplane. This was a large tortuous vessel with a moreno's crook in its proximal portion. It gave rise to an acute marginal, a large PDA and a PLVB. There were no significant stenotic lesions in the right coronary artery. At this point, the procedure was completed, the catheter was withdrawn over an indwelling wire. The patient tolerated the procedure well and left the cardiac catheterization lab in stable condition. FINAL IMPRESSION: * Minor left anterior descending stenosis rated at 40% with no other significant stenotic lesions. * No aortic stenosis. * Preserved left ventricular systolic function by noninvasive studies. PLAN: Continue to optimize medical management. TID: [id number] RECEIPT: [id number]
[2024-08-27] MEDS ORDERED: INSULIN humuLIN R 100 UNIT/ML 3ML SQ SCH (16:30)
--- NOTE | 2024-08-27 16:30 | NUR ---
report received report from dale martinez rn for continuation of care
--- NOTE | 2024-08-27 19:06 | NUR ---
d/c discharge instructions given to pt and spouse. understanding voiced. rt radial free from bleeding or hematoma. pt taken out via w/c by gavin ribeiro rn in no distress.
== END 2024-08-27 19:08 | disposition home or self-care (01) ==
LOC: DAH 10:54
PROVIDERS: ATTEND Internal Medicine Cardiovascular Disease
DX: R93.1 Abnormal findings on diagnostic imaging of heart and coronary circulation (principal); I25.118 Atherosclerotic heart disease of native coronary artery with other forms of angina pectoris; I11.0 Hypertensive heart disease with heart failure; I50.32 Chronic diastolic (congestive) heart failure; E78.5 Hyperlipidemia, unspecified; E11.9 Type 2 diabetes mellitus without complications; E66.9 Obesity, unspecified; Z79.899 Other long term (current) drug therapy; Z98.890 Other specified postprocedural states; Z90.89 Acquired absence of other organs; Z68.34 Body mass index [BMI] 34.0-34.9, adult; Z88.8 Allergy status to other drugs, medicaments and biological substances; Z79.82 Long term (current) use of aspirin
CPT/HCPCS: 80048; 83880; 85025; 85610; 85730; 81001; 36415; 71045; 93005; 93458; 82948; Q9965; C1769; A4649; C1894; J3010; J3490 ×3; J1644 ×2; J2250 ×2; Q9967; A4215; A4222; A4221; A4663; A4216; A4606; A4223 ×3; 96360; 96361; 99156

== ENCOUNTER → 2024-09-01 | Outpatient (CLI) | payer OTHER ==
[~2024-09-01] MED LIST changes: -EZET10TA48 PO
--- NOTE | 2024-09-04 10:09 | HMCSR ---
APPROVED REPORT EXAM: Two-dimensional and M-mode echocardiogram with Doppler and color Doppler. INDICATION ICD: I35.0 Non-rheumatic aortic valve stenosis 2D Dimensions RVDd4.2 cmLA (2D)4.3 (1.6-4.0cm)LVEF(%, simp.)56 % IVSd1.1 (0.7-1.1cm)Ao Root(2D)3.9 (2.0-3.7cm)LA ESV INDEX (BP)24.26 mL/m2 LVDd5.0 (3.8-5.6cm)LVOT diam2.4 (1.8-2.4cm) PWd1.5 (0.7-1.1cm) IVSs1.2 cm LVDs3.2 (2.5-4.0cm) PWs1.9 cm M-Mode Dimensions EPSS1.0 cm LA (MM)4.7 (1.6-4.0cm) Ao Root(MM)3.5 (2.0-3.7cm) Aortic Valve AoV Vmax1.4 m/Danny Peak GR8.2 mmHgLVOT Vmax0.7 m/s AoV VTI0.3 mAo Mean GR5.0 mmHgLVOT VTI0.16 m YORDY (VMAX)2.4 cm2AVA (VTI) 2.4 cm2 Mitral Valve MV E Vmax55.9 cm/sDECEL Uxvr624 ms MV A Vmax90.1 cm/sP 1/2 T52 ms E/A ratio0.6MVA (PHT)4.2 cm2 TDI E/E' Grygeh91.0E/E' Newmnrf23.0 Medial E' Peak V2.00 cm/sLateral E' Peak V4.00 cm/s Pulmonary Valve PV Vmax0.8 m/s Tricuspid Valve TR Vmax1.4 m/sRVSP7.6 mmHg TR Peak GR7.6 mmHg Left Ventricle The left ventricle is normal size. There is moderate asymmetric left ventricular hypertrophy, with no outflow tract obstruction. The LVEF is 45-50%. No left ventricle thrombus noted on this study. Stage I diastolic dysfunction. Right Ventricle The right ventricle is normal size. The right ventricular systolic function is normal. Atria The left atrium is mildly dilated. The right atrium size is normal. Aortic Valve The aortic valve is mildly to moderately sclerotic. Trace of aortic regurgitation is present. There i s no aortic valvular stenosis. Mitral Valve The mitral valve is normal in structure. There is no mitral valve regurgitation noted. There is no mi tral valve stenosis. Tricuspid Valve The tricuspid valve is normal in structure. There is no tricuspid valve regurgitation noted. Pulmonic Valve The pulmonary valve is normal in structure. There is no pulmonic valvular regurgitation. Great Vessels The aortic root is mildly enlarged. The IVC is normal in size and collapses >50% with inspiration. Pericardium There is no pericardial effusion. Other Information Quality : Adequate Conclusion The left ventricle is normal size. There is moderate asymmetric left ventricular hypertrophy, with no outflow tract obstruction. The LVEF is 45-50%. Stage I diastolic dysfunction. The right ventricle is normal size. The left atrium is mildly dilated. The aortic valve is mildly to moderately sclerotic. Trace of aortic regurgitation is present. There is no aortic valvular stenosis. The mitral valve is normal in structure. There is no mitral valve regurgitation noted. There is no mitral valve stenosis. There is no tricuspid valve regurgitation noted. There is no pulmonic valvular regurgitation. The aortic root is mildly enlarged. The IVC is normal in size and collapses >50% with inspiration. There is no pericardial effusion.
== END | disposition home or self-care (01) ==
LOC: RAH 14:42
PROVIDERS: ATTEND Internal Medicine Cardiovascular Disease
DX: I35.8 Other nonrheumatic aortic valve disorders (principal); I51.7 Cardiomegaly; I25.10 Atherosclerotic heart disease of native coronary artery without angina pectoris
CPT/HCPCS: 93306

== ENCOUNTER → 2024-12-03 | Outpatient (CLI) | payer OTHER ==
--- NOTE | 2024-12-03 13:49 | HMCIMG ---
CT CHEST HIGH RESOLUTION (WO) HISTORY: Bradycardia COMPARISON: 08/04/2024 TECHNIQUE: Multiple sequential axial images of the chest were obtained from the thoracic inlet through upper abdomen. Patient was not given contrast through intravenous route. High-resolution images were obtained. FINDINGS: There is no evidence of pulmonary nodule or parenchymal disease. No pleural effusion or pericardial effusion is seen. There is no evidence of pneumothorax. There are normal size mediastinal and hilar lymph nodes. The heart is not enlarged. Degenerative changes of the thoracolumbar spine are present. There is no evidence of adrenal nodule. IMPRESSION: 1. No evidence of pulmonary nodule or effusion is seen. CT was performed with one or more following dose reduction techniques: automated exposure control, adjustment of the mA and kv according to patient's size, or use of a iterative reconstruction technique.
== END | disposition home or self-care (01) ==
LOC: RAH 12:21
PROVIDERS: ATTEND Internal Medicine Cardiovascular Disease
DX: R00.1 Bradycardia, unspecified (principal); M47.815 Spondylosis without myelopathy or radiculopathy, thoracolumbar region
CPT/HCPCS: 71250